=== PATIENT | female | born 1990 | race Caucasian/White ===

== ENCOUNTER → 2017-06-24 | Outpatient (CLI) | payer OTHER ==
--- NOTE | 2017-06-25 17:59 | Pulmonary Function Test ---
Pulmonary Function Test Date of Procedure:: 06/25/17 INDICATION:: Dyspnea Referring Provider: Danya Calderón Flexographic Press Set Up Operator: Codi Hernandez [employer] DRIER - Report Spirometry: FVC 4.25 L 115% FEV1 3.44 L 108% FEV1/FVC % 81 predicted 86 FEF 25-75% 3.31 88% Impression: No evidence for obstructive ventilatory defect.
== END ==
LOC: RT 08:31
PROVIDERS: ATTEND Physician Assistant
DX: J45.909 Unspecified asthma, uncomplicated (principal)
CPT/HCPCS: 94010